=== PATIENT | male | born 1970 | race Hispanic/Latino ===

== ENCOUNTER → 2022-02-14 | Day surgery (SDC) | payer OTHER ==
[~2022-02-14] MED LIST: FENTANYL CITRATE/PF 100MCG/2 ML INJ ONE; FLOMAX0.4 MG PO; HYOSCYAMINE SULFATE 0.5 MG/ML INJ ONE; KETAMINE HCL INJ 50 MG/ML 10 ML VIAL ONE; LIDOCAINE HCL 2% LOCAL INJ 5 ML SDV VIAL INJ ONE; METOCLOPRAMIDE HCL 10 MG/2ML VIAL ONE; MIDAZOLAM HCL 2 MG/2 ML VIAL ONE; OMEPRAZOLE40 MG PO; PROPOFOL IV EMULSION 10 MG/ML 20 ML VIAL ONE
[2022-02-14 16:15] VITALS: BP 107/75
== END | disposition home or self-care (01) ==
LOC: OR 10:30
PROVIDERS: ATTEND Internal Medicine Gastroenterology
DX: Z12.11 Encounter for screening for malignant neoplasm of colon (principal); D12.0 Benign neoplasm of cecum; D12.2 Benign neoplasm of ascending colon; D12.3 Benign neoplasm of transverse colon; D12.4 Benign neoplasm of descending colon; D12.5 Benign neoplasm of sigmoid colon; D12.8 Benign neoplasm of rectum; K31.7 Polyp of stomach and duodenum; K29.50 Unspecified chronic gastritis without bleeding; K29.80 Duodenitis without bleeding; K21.9 Gastro-esophageal reflux disease without esophagitis; K31.89 Other diseases of stomach and duodenum; K20.90 Esophagitis, unspecified without bleeding; K44.9 Diaphragmatic hernia without obstruction or gangrene; K64.8 Other hemorrhoids; Z71.3 Dietary counseling and surveillance; U07.1 COVID-19; N40.0 Benign prostatic hyperplasia without lower urinary tract symptoms; Z01.810 Encounter for preprocedural cardiovascular examination; Z79.899 Other long term (current) drug therapy; Z68.27 Body mass index [BMI] 27.0-27.9, adult
CPT/HCPCS: 43239; 45380; 45385; 93005; C9113; J1980; J2001; J2250; J2704; J2765; J3010; U0002; 45378